=== PATIENT | female | born 1945 | race Caucasian/White ===

== ENCOUNTER 2016-12-04 10:01 | Emergency (ER) | payer MEDICARE, OTHER ==
--- NOTE | 2016-12-04 10:07 | EDPHY ---
H & P Smoking Status: Never smoked Time Seen by Provider: 12/04/16 10:06 HPI/ROS: CHIEF COMPLAINT: Syncope, hit head, left-sided chest pain HISTORY OF PRESENT ILLNESS: 71-year-old female presents to the emergency department by ambulance after she had a syncopal episode at [facility]. Patient states that she was feeling weak and dizzy when she was in the dining [place]. She felt like she was going to pass out and then fell hitting the back of her head and landing on her left hip. Reported loss of consciousness for approximately 1 minute. She states that she has had an ongoing cough for last few days. She thinks that this feels very similar to when she had a pulmonary embolism in 2014. She has a history of 3 pulmonary embolisms. She stopped her Coumadin 2 or 3 months ago because "I just could not take it anymore ". She denies abdominal pain or vomiting. No neck or back pain. She does have a headache specially the left side where she hit. No visual symptoms. She is also having pain in her left hip. She has not tried to walk on her left hip since she fell. REVIEW OF SYSTEMS: Constitutional: No fever, no chills. Eyes: No double or blurry vision. ENT: No sore throat. Respiratory: As above. Cardiac: As above Gastrointestinal: No abdominal pain, vomiting or diarrhea. Genitourinary: No dysuria. Musculoskeletal: No neck or back pain. Skin: No rashes. Neurological: No headache. (Rajan Bonilla) Past Medical/Surgical History: Pulmonary embolism x3 most recent was in 2013 and stop her Coumadin on her own 2 or 3 months ago. History of DVT left leg (Rajan Bonilla) Social History: Lives at [facility] (Rajan Bonilla) Physical Exam: General Appearance: Alert, no distress. Mentating normally and answering questions appropriately. She has pain with palpation left posterior parietal aspect of the scalp. No abrasion or puncture wound. No laceration. Eyes: Pupils equal and round. Extraocular motions are all intact. ENT: Mouth: Mucous membranes moist. Respiratory: No wheezing, rhonchi, or rales, lungs are clear to auscultation. Cardiovascular: Regular rate and rhythm. Gastrointestinal: Abdomen is soft and nontender, no masses, no rebound or guarding, bowel sounds normal. Neurological: Alert and oriented x 3, cranial nerves II through XII grossly intact Skin: Warm and dry, no rashes. Musculoskeletal: Nontender to palpate along the cervical, thoracic or lumbar spine. Neck is supple. Extremities: Pain with flexion of her left knee and external rotation of her left hip. Mild swelling in the left calf compared to the right calf. Nontender to palpate. Psychiatric: Patient is oriented X 3, there is no agitation. (Rajan Bonilla) Constitutional: Initial Vital Signs Temperature (C) 36.5 C 12/04/16 09:56 Heart Rate 69 12/04/16 09:56 Respiratory Rate 18 12/04/16 09:56 Blood Pressure 162/93 H 12/04/16 09:56 O2 Sat (%) 99 12/04/16 09:56 O2 Delivery Mode Room Air Allergies/Adverse Reactions: methylprednisolone Allergy (Verified 01/06/16 17:32) Other-Enter Comments onion Allergy (Verified 01/06/16 17:32) prednisone Allergy (Verified 01/06/16 17:32) Other-Enter Comments Home Medications: Medication Instructions Recorded Gabapentin [Neurontin 300 MG (*)] 300 mg PO HS 11/25/15 Oxybutynin Chloride 10 mg PO BID 11/25/15 Acetaminophen [Tylenol Arthritis] 650 mg PO Q6 PRN 01/06/16 Docusate Sodium [Colace 100 MG (*)] 100 mg PO BID 01/06/16 Magnesium Hydroxide [Milk of 30 ml PO BID 01/06/16 Magnesia (*)] celeCOXIB [Celebrex (*)] 200 mg PO DAILY@12 01/06/16 oxyCODONE IR [Oxycodone Ir (*)] 5 - 10 mg PO Q3H PRN 01/06/16 Acetaminophen [Tylenol 325mg (*)] 650 mg PO Q6HRS #0 tab 01/14/16 Cyclobenzaprine [Flexeril 10 MG 10 mg PO Q8HRS PRN #0 tab 01/14/16 (*)] Enoxaparin [Lovenox 40 MG (*)] 40 mg SC DAILY #0 syr 01/14/16 Lactulose [Cephulac 20 gm/30 ml 20 gm PO TID PRN #0 ml 01/14/16 oral soln (*)] Lidocaine 5% [Lidoderm 5% Patch 1 ea TD DAILY #0 patch 01/14/16 (*)] Magnesium Hydroxide [Milk of 30 ml PO DAILY PRN #0 udcup 01/14/16 Magnesia (*)] Patch Removal 1 ea TD DAILY21 #0 patch 01/14/16 Polyethylene Glycol 3350 [Miralax 17 gm PO DAILY #0 pkt 01/14/16 17 gm (*)] Polyethylene Glycol 3350 [Miralax 17 gm PO DAILY PRN #0 pkt 01/14/16 17 gm (*)] Sennosides/Docusate Sodium 1 - 2 tab PO BID #0 tab 01/14/16 [Senokot-S] Temazepam [Restoril 15 MG (*)] 15 mg PO HS PRN #0 cap 01/14/16 Warfarin Sodium [Coumadin 5MG (*)] 10 mg PO DAILY AT 4PM #0 tab 01/14/16 Medical Decision Making - Diagnostics Imaging: Discussed imaging studies w/ hockey instructor Radiologist - Diagnostics EKG Interpretation: EKG: Complete interpretation has been separately recorded in the [email or web address] archive. Summary impression: Sinus rhythm, rate 77 (Jarret Norris) Imaging Results: Imaging Impressions Cervical Spine CT 12/04/16 10:25 Impression: No fracture or evidence of ligamentous injury. Findings and recommendations discussed with RAJAN BONILLA at 11:30 hour, . Final report concurs with initial preliminary interpretation. Chest/Thorax CTA 12/04/16 10:25 Impression: 1. No pulmonary embolism. 2. Multiple hepatic cysts, unchanged. 3. Cholelithiasis, unchanged. Findings and recommendations discussed with Rajan Bonilla at 1130 hours, 2016. Final report concurs with initial preliminary interpretation. Head CT 12/04/16 10:25 Impression: 1. Nothing acute intracranially. No hemorrhage or mass. 2. Prominent vertebral arteries, and a even more prominent basilar tip. Query basilar tip aneurysm versus overall vessel megaly. Further evaluation with MR angiography or CT angiography can be performed on an elective basis if clinically appropriate. Findings and recommendations discussed with Rajan Bonilla at 1130 hours, 2016. Final report concurs with initial preliminary interpretation. ED Course/Re-evaluation: 71-year-old female presents to the emergency department after having syncopal episode. Patient is also concerned that she has recurring pulmonary embolism. 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 No evidence of pulmonary embolism on CT pulmonary angiogram. Patient was also seen examined by Dr. Norris, secondary supervising physician, who also evaluated the patient and agrees with treatment and plan. Patient will be discharged home with recommendation of outpatient imaging of her head to further evaluate basilar tip aneurysm. She understands that pulmonary embolism was not visualized on CT pulmonary angiogram. Patient was observed for nearly 3 hours in the emergency department and had no recurring syncopal episodes. She was comfortable being discharged home. Troponin was negative. Laboratory studies were unremarkable. (Rajan Bonilla) Differential Diagnosis: Head injury including but not limited to concussion, skull fracture, intraparenchymal contusion, subarachnoid, subdural and epidural hematoma. Shortness of breath including but not limited to pulmonary infectious process, COPD, asthma, pulmonary embolus and congestive heart failure. (Rajan Bonilla) Other Provider: Independent physician evaluation: I evaluated and participated in the management of the patient. I also evaluated the patient independently. My co-signature indicates that I have reviewed this chart and I agree with the findings and plan of care as documented. My personal H&P findings include: The patient presents to the ED with complaints of headache and neck pain following a syncopal episode at home. The patient does have a history of PE and DVT. She has been off of Coumadin for the past 3 months. She reports over the past several days she has had some upper chest discomfort consistent with prior history of PE. The patient denies any history of exertional chest pain. She denies pleuritic chest pain. She denies productive cough or fever. The patient has no complaints of back pain, abdominal pain or lower extremity complaints from her fall. Physical examination General Appearance: Alert, no distress Head: Tenderness to palpation left forehead, mild soft tissue swelling ecchymosis Eyes: Pupils equal, round, reactive ENT, Mouth: No hemotympanum, no oral trauma Neck: Tenderness to palpation in the mid cervical spine generalized in nature Respiratory: No chest wall tender, subcutaneous air, lungs clear bilaterally Cardiovascular: Regular rate and rhythm Abdomen: Abdomen is soft and nontender, pelvis stable Skin: No lacerations, No abrasion Back: No midline T/L/S pain Extremities: Nontender, full range of motion Neurological: A&Ox3, normal motor function, normal sensory exam I reviewed the patient's EKG which demonstrates no evidence of an arrhythmia. The patient will be taken for a CT scan of her head and cervical spine given her complaints of headache and neck pain following a mechanical fall. Additionally, the patient feels she has symptoms consistent with a possible recurrent PE. The patient is not low/moderate risk by Wells criteria. A CT angiogram will be obtained. The CT pulmonary angiogram demonstrates no evidence of a PE. CT scan of the head and cervical spine demonstrate no evidence of an acute intracranial injury or cervical spine fracture. 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 There is no evidence of hemorrhage. The patient cannot receive an additional dose of IV contrast. The patient will be discharged home at this point time. I have asked her to follow up with her primary care provider for consideration of a CT angiogram or MR angiogram as an outpatient for further evaluation of a possible basilar tip aneurysm. I doubt subarachnoid hemorrhages a presentation today. I will defer to the patient's primary care provider for obtaining outpatient imaging. The patient will be discharged home with customary aftercare instructions and return precautions. Tylenol as needed for pain. (Jarret Norris) - Data Points Laboratory Results: Laboratory Results 12/04/16 10:05 12/04/16 10:05 12/04/16 12/04/16 12/04/16 10:40 10:15 10:05 WBC RBC Hgb POC Hgb 12.9 gm/dL gm/dL (12.6-16.3) Hct POC Hct 38 % % (38-47) MCV MCH MCHC RDW Plt Count MPV Neut % (Auto) Lymph % (Auto) [place] % (Auto) Eos % (Auto) Baso % (Auto) Nucleat RBC Rel Count Absolute Neuts (auto) Absolute Lymphs (auto) Absolute Monos (auto) Absolute Eos (auto) Absolute Basos (auto) Absolute Nucleated RBC Immature Gran % Immature Gran # POC Sodium 145 mEq/L H mEq/L (134-144) Sodium 142 mEq/L mEq/L (134-144) POC Potassium 3.6 mEq/L mEq/L (3.3-5.0) Potassium 3.9 mEq/L mEq/L (3.5-5.2) POC Chloride 111 mEq/L H mEq/L (97-110) Chloride 108 mEq/L mEq/L (97-110) Carbon Dioxide 21 mEq/l L mEq/l (22-31) Anion Gap 13 mEq/L mEq/L (8-16) POC BUN 15 mg/dL mg/dL (7-23) BUN 15 mg/dL mg/dL (7-23) Creatinine 0.9 mg/dL mg/dL (0.6-1.0) POC Creatinine 0.8 mg/dL mg/dL (0.6-1.0) Estimated GFR > 60 Glucose 109 mg/dL H mg/dL (70-100) POC Glucose 92 mg/dL mg/dL (70-100) Calcium 9.6 mg/dL mg/dL (8.5-10.4) Troponin I < 0.012 ng/mL ng/mL (0.000-0.034) Urine Color YELLOW Urine Appearance HAZY Urine pH 5.0 (5.0-7.5) Ur Specific [place] 1.018 (1.002-1.030) Urine Protein NEGATIVE (NEGATIVE) Urine Ketones 1+ H (NEGATIVE) Urine Blood NEGATIVE (NEGATIVE) Urine Nitrate NEGATIVE (NEGATIVE) Urine Bilirubin NEGATIVE (NEGATIVE) Urine Urobilinogen NEGATIVE EU EU (0.2-1.0) Ur Leukocyte Esterase NEGATIVE (NEGATIVE) Urine RBC 1-3 /hpf /hpf (0-3) Urine WBC 1-3 /hpf /hpf (0-3) Ur Epithelial Cells TRACE /lpf /lpf (NONE-1+) Hyaline Casts 15-25 /lpf H /lpf (0-1) Urine Mucus 1+ /lpf /lpf (NONE-1+) Urine Glucose NEGATIVE (NEGATIVE) 12/04/16 10:05 WBC 6.11 10^3/uL 10^3/uL (3.80-9.50) RBC 4.75 10^6/uL 10^6/uL (4.18-5.33) Hgb 13.6 g/dL g/dL (12.6-16.3) POC Hgb Hct 40.2 % % (38.0-47.0) POC Hct MCV 84.6 fL fL (81.5-99.8) MCH 28.6 pg pg (27.9-34.1) MCHC 33.8 g/dL g/dL (32.4-36.7) RDW 14.2 % % (11.5-15.2) Plt Count 207 10^3/uL 10^3/uL (150-400) MPV 11.4 fL fL (8.7-11.7) Neut % (Auto) 60.8 % % (39.3-74.2) Lymph % (Auto) 32.9 % % (15.0-45.0) [place] % (Auto) 5.1 % % (4.5-13.0) Eos % (Auto) 0.0 % L % (0.6-7.6) Baso % (Auto) 1.0 % % (0.3-1.7) Nucleat RBC Rel Count 0.0 % % (0.0-0.2) Absolute Neuts (auto) 3.72 10^3/uL 10^3/uL (1.70-6.50) Absolute Lymphs (auto) 2.01 10^3/uL 10^3/uL (1.00-3.00) Absolute Monos (auto) 0.31 10^3/uL 10^3/uL (0.30-0.80) Absolute Eos (auto) 0.00 10^3/uL L 10^3/uL (0.03-0.40) Absolute Basos (auto) 0.06 10^3/uL 10^3/uL (0.02-0.10) Absolute Nucleated RBC 0.00 10^3/uL 10^3/uL (0-0.01) Immature Gran % 0.2 % % (0.0-1.1) Immature Gran # 0.01 10^3/uL 10^3/uL (0.00-0.10) POC Sodium Sodium POC Potassium Potassium POC Chloride Chloride Carbon Dioxide Anion Gap POC BUN BUN Creatinine POC Creatinine Estimated GFR Glucose POC Glucose Calcium Troponin I Urine Color Urine Appearance Urine pH Ur Specific [place] Urine Protein Urine Ketones Urine Blood Urine Nitrate Urine Bilirubin Urine Urobilinogen Ur Leukocyte Esterase Urine RBC Urine WBC Ur Epithelial Cells Hyaline Casts Urine Mucus Urine Glucose Medications Given: Discontinued Medications Ondansetron HCl (Zofran) 4 mg IVP EDNOW ONE Stop: 12/04/16 10:51 Last Admin: 12/04/16 11:37 Dose: 4 mg Point of Care Test Results: 12/04/16 10:15 POC Sodium 145 H POC Potassium 3.6 POC Chloride 111 H POC BUN 15 POC Creatinine 0.8 POC Glucose 92 Departure - Departure Disposition: Home, Routine, Self-Care Clinical Impression: Syncope Qualifiers: Syncope type: unspecified Qualified Code(s): R55 - Syncope and collapse Scalp contusion Qualifiers: Encounter type: initial encounter Qualified Code(s): S00.03XA - Contusion of scalp, initial encounter Cervical strain Qualifiers: Encounter type: initial encounter Qualified Code(s): S16.1XXA - Strain of muscle, fascia and tendon at neck level, initial encounter Condition: Good Instructions: Cervical Strain (ED) Additional Instructions: 1. Your CT pulmonary angiogram demonstrates no evidence of a blood clot. 2. Your CT scan of the head demonstrates no evidence of a fracture. There is a questionable aneurysmal formation involving and artery at the base of your skull. This cannot be further characterized today but should be worked up as an outpatient with your primary care provider. Please contact them to schedule a follow-up visit to discuss this finding. 3. Your neck CT scan demonstrates no evidence of an obvious fracture. 4. Tylenol as needed for pain Referrals: La Terrell MD [Medical Doctor] - As per Instructions
--- NOTE | 2016-12-04 10:09 | CPEKG ---
Heart Rate: 77 RR Interval: 779 P-R Interval: 164 QRSD Interval: 80 QT Interval: 416 QTC Interval: 471 P [place]k: 24 QRS [place]: -16 T Wave [place]: 9 EKG Severity - BORDERLINE ECG - EKG Impression: SINUS RHYTHM EKG Impression: BORDERLINE LEFT AXIS DEVIATION EKG Impression: BORDERLINE T ABNORMALITIES, ANTERIOR LEADS Electronically Signed By: Jarret Norris 04-Dec-2016 12:50:45
[2016-12-04 10:13] LABS: % IMMATURE GRANULYOCYTES 0.2 % (0.0-1.1); ABSOLUTE IMMATURE GRANULOCYTES 0.01 10^3/uL (0.00-0.10); ADD DIFF? NO; ADD MORPH? NO; ADD SCAN? NO; ATYPICAL LYMPHOCYTE FLAG 0 (0-99); FRAGMENT RBC FLAG 0 (0-99); HEMATOCRIT 40.2 % (38.0-47.0); HEMOGLOBIN 13.6 g/dL (12.6-16.3); LEFT SHIFT FLG 0 (0-99); LIPEMIA HEMOLYSIS FLAG 90 (0-99); MEAN CELL HEMOGLOBIN 28.6 pg (27.9-34.1); MEAN CELL HEMOGLOBIN CONCENTR. 33.8 g/dL (32.4-36.7); MEAN CELL VOLUME 84.6 fL (81.5-99.8); MEAN PLATELET VOLUME 11.4 fL (8.7-11.7); PLATELET CLUMPS FLAG 0 (0-99); PLATELET COUNT 207 10^3/uL (150-400); RED BLOOD CELL COUNT 4.75 10^6/uL (4.18-5.33); RED CELL DISTRIBUTION WIDTH 14.2 % (11.5-15.2)
[2016-12-04 10:23] LABS: ANION GAP 13 mEq/L (8-16); CALCIUM 9.6 mg/dL (8.5-10.4); CARBON DIOXIDE 21 mEq/l (22-31); CHLORIDE 108 mEq/L (97-110); CREATININE 0.9 mg/dL (0.6-1.0); GLOMERULAR FILTRATION RATE > 60; GLUCOSE 109 mg/dL (70-100); POTASSIUM 3.9 mEq/L (3.5-5.2); SODIUM 142 mEq/L (134-144)
[2016-12-04] MEDS ORDERED: IOPAMIDOL (ISOVUE 370) 100 ML BTL IV ONE ×2 (10:30→10:58)
[2016-12-04 10:35] LABS: TROPONIN I < 0.012 ng/mL (0.000-0.034)
[2016-12-04] MEDS ORDERED: ONDANSETRON 4 MG/2 ML VIAL ONE (10:39)
[2016-12-04] MEDS ORDERED: ONDANSETRON 4 MG/2 ML VIAL IVP ONE (10:50)
[2016-12-04 11:00] LABS: COLOR YELLOW; LEUKOCYTE ESTERASE,URINE NEGATIVE (NEGATIVE); NITRITE,URINE NEGATIVE (NEGATIVE)
[2016-12-04 11:11] LABS: HYALINE CASTS 15-25 /lpf (0-1); MUCUS 1+ /lpf (NONE-1+)
[2016-12-04 12:15] VITALS: BP 142/88; PULSE 70; RESP 16; TEMP 98.1; O2SAT 92
== END 2016-12-04 12:51 | disposition home or self-care (01) ==
LOC: EDUNIT#
DX: S00.03XA Contusion of scalp, initial encounter (principal); S16.1XXA Strain of muscle, fascia and tendon at neck level, initial encounter; R55 Syncope and collapse; W01.198A Fall on same level from slipping, tripping and stumbling with subsequent striking against other object, initial encounter; Y92.011 Dining room of single-family (private) house as the place of occurrence of the external cause
CPT/HCPCS: 70450; 71275; 72125; 93005; 96374; 99285; J2405; Q9967; 82947-QW